=== PATIENT | female | born 1985 | race Two or more races ===

== ENCOUNTER 2018-03-28 13:26 | Emergency (ER) | payer BC ==
[~2018-03-28] VITALS: Ht 152.4 cm; Wt 54.4 kg
[2018-03-28 13:47] VITALS: BP 105/67
[2018-03-28] MEDS ORDERED: KETOROLAC TROMETHAMINE INJ 30 MG/ML VIAL ONE (15:16)
[2018-03-28] MEDS ORDERED: KETOROLAC TROMETHAMINE INJ 30 MG/ML VIAL IM ONE (15:30)
== END 2018-03-28 17:15 | disposition home or self-care (01) ==
LOC: ER 13:28
DX: S23.3XXA Sprain of ligaments of thoracic spine, initial encounter (principal); S63.591A Other specified sprain of right wrist, initial encounter; F10.10 Alcohol abuse, uncomplicated; F17.200 Nicotine dependence, unspecified, uncomplicated; Y90.9 Presence of alcohol in blood, level not specified; V49.49XA Driver injured in collision with other motor vehicles in traffic accident, initial encounter; Y93.89 Activity, other specified; Y92.410 Unspecified street and highway as the place of occurrence of the external cause; Y99.8 Other external cause status
CPT/HCPCS: 84703-TC; J1885